=== PATIENT | female | born 1960 | race Caucasian/White ===

== ENCOUNTER → 2021-02-01 10:42 | Outpatient (BNVA) | payer BC, SELFPAY | PROVIDERS: Family Provider Family Medicine; Visit Provider Nurse Practitioner Family | DX: M25.531 Pain in right wrist (principal) | CPT/HCPCS: 73110 ==

== ENCOUNTER 2022-07-20 15:07 | Outpatient (CLI) | payer OTHER, SELFPAY ==
--- NOTE | 2022-07-20 15:20 | MM_ITS ---
WS: [id number] BILATERAL 3D TOMOSYNTHESIS DIGITAL SCREENING MAMMOGRAM WITH CAD CLINICAL INFORMATION: SCREEN HISTORY: Screening mammogram. No current complaints. COMPARISON: None. TECHNIQUE: Bilateral CC and MLO views. FINDINGS: Fatty-replaced breasts bilaterally. No suspicious focal mass, asymmetry, calcifications, or cyber security architect ural distortion. No evidence of malignancy. Punctate and lucent centered calcification. A few intrama mmary lymph nodes. MM/[place] [id number] IMPRESSION: BI-RADS: 2-Benign FOLLOW UP: 1 Year Follow-up Recommend return to annual screening mammography.
== END 2022-07-20 15:08 | disposition home or self-care (01) ==
LOC: RAD 15:10
PROVIDERS: Family Provider Family Medicine; Visit Provider Nurse Practitioner Family
DX: Z12.31 Encounter for screening mammogram for malignant neoplasm of breast (principal)
CPT/HCPCS: 77063; 77067

== ENCOUNTER 2023-08-11 14:18 | Outpatient (CLI) | payer OTHER, SELFPAY ==
--- NOTE | 2023-08-11 14:23 | XR_ITS ---
WS: [id number] Right knee, 3 views, 08/11/2023 Clinical Data: R KNEE JOINT PAIN X 3 MONTHS Comparison: None. Findings: No fractures or dislocations are seen. There is medial and to a lesser degree lateral joint space aleks rowing. There are spurs of the medial and lateral tibial plateau and lateral femoral condyle. The pos terior right patella shows irregularity. There are synovial calcifications superior to the patellofem oral articulation. The soft tissues are unremarkable. XR/XR knee RT 3V* [id number] Impression: Moderate osteoarthritis of the right knee Negative right knee. Kellgren-Kvng Classification: grade 3 (moderate): moderate multiple osteoph ytes, definite narrowing of joint space and some sclerosis and possible deformi ty of bone ends
--- NOTE | 2023-08-11 14:40 | XR_ITS ---
WS: [id number] Left knee, 3 views, 08/11/2023 Clinical Data: LEFT KNEE PAIN X 3MO; NO KNOWN INJURY Comparison: None. Findings: No fractures or dislocations are seen. There is medial joint compartment narrowing with spurring of t he medial tibial plateau and medial femoral condyle. The posterior left patella shows minimal spurs. The soft tissues are unremarkable. XR/XR knee LT 3V* [id number] Impression: Mild osteoarthritis of the left knee. Kellgren-Kvng Classification: grade 2 (minimal): definite osteophytes and p ossible joint space narrowing
== END 2023-08-11 14:19 | disposition home or self-care (01) ==
LOC: RAD 14:19
PROVIDERS: Family Provider Family Medicine; Visit Provider Nurse Practitioner Family
DX: M25.561 Pain in right knee (principal); M25.562 Pain in left knee; M17.0 Bilateral primary osteoarthritis of knee
CPT/HCPCS: 73562

== ENCOUNTER → 2023-11-09 14:15 | Outpatient (BNVA) | payer OTHER, SELFPAY | PROVIDERS: Family Provider Family Medicine; PCP Nurse Practitioner Family; Referring Provider Nurse Practitioner Family; Visit Provider Physician Assistant | DX: M25.561 Pain in right knee (principal); M25.562 Pain in left knee; M17.11 Unilateral primary osteoarthritis, right knee | CPT/HCPCS: 73560; 73565 ==

== ENCOUNTER 2024-04-02 15:24 | Outpatient (CLI) | payer OTHER, SELFPAY ==
--- NOTE | 2024-04-02 15:45 | CT_ITS ---
WS: [id number] CT RIGHT KNEE, NONCONTRAST TECHNIQUE: Noncontrast CT of the RIGHT knee to include the RIGHT hip and ankle. CLINICAL INFORMATION: DJD KNEE COMPARISON: None. DLP: 942.[address] scans at [facility] use at least one of these dose optimization techniques: automated e xposure control; mA and/or kV adjustment per patient size (includes targeted exams where dose is matc hed to clinical indication); or iterative reconstruction. FINDINGS: CT/CT knee RT [facility] [id number] IMPRESSION: Images obtained for preoperative purposes.
== END 2024-04-02 15:25 | disposition home or self-care (01) ==
PROVIDERS: Family Provider Family Medicine; PCP Nurse Practitioner Family; Visit Provider Student in an Organized Health Care Education/Training Program
DX: M17.11 Unilateral primary osteoarthritis, right knee (principal); K57.30 Diverticulosis of large intestine without perforation or abscess without bleeding; M47.898 Other spondylosis, sacral and sacrococcygeal region; R93.89 Abnormal findings on diagnostic imaging of other specified body structures; D36.7 Benign neoplasm of other specified sites
CPT/HCPCS: 73700

== ENCOUNTER → 2024-04-04 15:28 | Outpatient (BNVA) | payer OTHER, SELFPAY | PROVIDERS: Family Provider Family Medicine; PCP Nurse Practitioner Family; Visit Provider Physician Assistant | DX: Z01.818 Encounter for other preprocedural examination (principal); M25.569 Pain in unspecified knee; R03.0 Elevated blood-pressure reading, without diagnosis of hypertension; M17.11 Unilateral primary osteoarthritis, right knee | CPT/HCPCS: 36415; 80053; 81001; 85025 ==

== ENCOUNTER → 2024-04-08 11:40 | Outpatient (BNVA) | payer OTHER, SELFPAY | PROVIDERS: Family Provider Family Medicine; PCP Nurse Practitioner Family; Visit Provider Family Medicine | DX: Z01.818 Encounter for other preprocedural examination (principal) | CPT/HCPCS: 93005 ==

== ENCOUNTER 2024-04-15 05:54 | Day surgery (SDC) | payer OTHER, SELFPAY ==
[2024-04-15] VITALS (18 sets, daily range): BP systolic 96–123; BP diastolic 47–104; PULSE 55–79; RESP 10–20; TEMP 36.3–37.3; O2SAT 96–100; BMI 40.5
--- NOTE | 2024-04-15 06:13 | ANES.PREANE2 ---
Pre-Anesthetic Assessment Height/Weight: Height 5 ft 6.5 in Weight 255 lb Temp Pulse Resp BP Pulse Ox O2 Del Method 97.4 F L 79 20 H 123/104 96 Room Air 04/15/24 06:05 04/15/24 06:05 04/15/24 06:05 04/15/24 06:05 04/15/24 06:05 04/15/24 06:11 Preop Diagnosis: knee DJD Operation Date: 04/15/24 07:00 Proposed Procedures p Gopi Robot Total Knee Arthroplasty(Right) - Raymond Paredes, DO Was Beta Darren taken within 24 hours: N/A Was Clonidine taken within 24 hours: N/A Last intake: Intake Last Liquid Date 04/14/24 Last Liquid Time 23:00 Last Solid Date 04/14/24 Last Solid Time 19:00 Social No alcohol and No tobacco Exam alert, oriented x 3, clear to auscultation bilaterally and regular rate & rhythm Airway Submandibular: within normal limits Cervical ROM: within normal limits Mallampati: Class III Dentition: full Anesthetic Plan ASA status: 3 Anesthesia: MAC and Regional (specify below) Other: No prior issues with anesthesia NPO since yesterday BMI 40 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 S/p craniotomy 12 years ago Labs performed 04/04/2024 reviewed and acceptable hold for procedure EKG showing sinus rhythm with mild conduction delay Plan for spinal anesthetic with adductor canal block Medications/Allergies Home Medications Medication Instructions Recorded Confirmed Last Taken Type levetiracetam 750 mg tablet 750 mg PO BID 11/09/23 04/11/24 04/15/24 04:00 History (Keppra) sertraline 25 mg tablet (Zoloft) 25 mg PO DAILY 11/09/23 04/11/24 04/14/24 12:00 History Allergies Allergy/AdvReac Type Severity Reaction Status Date / Time No Known Allergies Allergy Verified 04/08/24 11:55 [facility] Anesthesia Social History Smoking and tobacco/nicotine status: never used tobacco/nicotine Data Anesthesia 04/15/24 06:34 04/15/24 06:34 Cardiac Studies: No Data to Display
[2024-04-15] MEDS: scopolamine 1 mg PATCH 1 PATCH TRANSDERMA (06:17)
[2024-04-15] MEDS: sodium chloride 0.9% 1,000 ML 30 ML IV (06:35)
[2024-04-15] MEDS: ketorolac 30 mg/mL INJ IVP (06:38)
[2024-04-15] MEDS: acetaminophen 1,000 MG/100 ML PIGGYBACK 400 MG IV ×2 (06:38→14:38)
[2024-04-15 06:52] LABS: Basophils % 0.4 %; Eosinophils # 0.1 10^3/uL (0.0-0.8); Eosinophils % 1.8 %; Lymphocytes # 1.1 10^3/uL (0.8-4.8); Lymphocytes % 15.1 %; Mean Corpuscular HGB Conc 31.6 g/dL (30-55); Mean Corpuscular Hemoglobin 25.5 pg (27-33); Mean Corpuscular Volume 80.7 fl (85-98); Mean Platelet Volume 11.6 fL (7.4-10.4); Monocytes # 0.5 10^3/uL (0.2-0.9); Neutrophils # 5.47 10^3/uL (1.8-7.7); Neutrophils % 75.6 %; Nucleated Red Blood Cells % 0 %; Platelet Count 179 10^3/cmm (157-399); Red Blood Count 4.71 10^6/uL (3.85-5.65); White Blood Count 7.24 10^3/uL (3.29-11.43)
--- NOTE | 2024-04-15 07:01 | W.PM.OPSUD ---
Surgery/Procedure H&P Update DATE OF PROCEDURE: April 15, 2024 DATE H&P PERFORMED: 04/04/24 H&P UPDATE INFORMATION: I have reviewed H&P completed within last 30 days, I have examined patient prior to procedure and No changes to prior documentation PREOP DIAGNOSIS: Right knee DJD PRIMARY INDICATION FOR PROCEDURE: Right knee DJD PLANNED PROCEDURE: Operation Date: 04/15/24 07:00 Proposed Procedures p Gopi Robot Total Knee Arthroplasty(Right) - Raymond Paredes DO
[2024-04-15 07:05] LABS: Blood Urea Nitrogen 17 mg/dL (8-23); Carbon Dioxide 20 mmol/L (22-29); Chloride 106 mmol/L (98-107); Creatinine Clr Calc Pharmacy 79.4466; Glomerular Filtration Rate 62.6 mL/min (90-130); Glucose 109 mg/dL (65-115); Osmolality Calculated 292 mOsm/kg (285-295); Sodium 140 mmol/L (136-145)
[2024-04-15] MEDS: ceFAZolin 3,000 MG in sodium chloride 0.9% (plus) 100 ML 200 MG IV (07:06)
[2024-04-15 07:08] LABS: Anion Gap 17.8 (5-19); Potassium 3.8 mmol/L (3.5-5.1)
--- NOTE | 2024-04-15 07:35 | ANES.PROC ---
Anesthesia Procedures Procedure/Date: 04/15/24 Nerve Block ^: Nerve Block 1: Main Anesthesia: spinal anesthesia block Time Out Performed: Yes Consent: requested by attending/covering physician and from patient Nerve block location: adductor canal Anesthesia monitors applied: pulse oximetry, EKG, BP cuff and oxygen Nerve block position: supine Anesthetic Used: ropivicaine 0.5% Amount of anesthesia used (mL): 15 Ultrasound used to: recognize landmarks Nerve Stimulator Used?: No Interscalene/Femoral BLK: other needle (pjunk 6inch) Injection: neg aspiration of heme Patient Tolerated Procedure: well Complications: none
[2024-04-15] MEDS: tranexamic acid 1,000 mg/10mL SDV 1000 MG IV (07:53)
[2024-04-15] MEDS: ROPivacaine 0.2% Premix 100 mL 200 MG INTRA-ARTI (08:23)
[2024-04-15] MEDS: EPINEPHrine 1 mg/mL INJ XX (08:23)
[2024-04-15] MEDS: tranexamic acid 1,000 mg/10mL SDV 1000 MG XX (08:23)
[2024-04-15] MEDS: VANCOMYCIN ADD-Vantage 1,000 MG VIAL 1000 MG XX ×2 (08:23→09:08)
[2024-04-15] MEDS: ketorolac 30 mg/mL INJ XX (08:23)
--- NOTE | 2024-04-15 09:57 | XR_ITS ---
WS: [id number] XR knee RT 1-2V [id number] REASON FOR EXAM: post op FINDINGS: Total right knee arthroplasty. Prosthetic components are intact and in proper position and alignment. No focal bone abnormality. XR/XR knee RT 1-2V [id number] IMPRESSION: Total right knee arthroplasty without abnormality.
--- NOTE | 2024-04-15 10:02 | P.BOP_ITS ---
Date of Procedure: [April 15, 2024] Surgeon: [Dr. Paredes, DO Naveen Paredes, YANELI] Construction Job Titles(s): [] Procedure(s) performed: [Right total knee arthroplasty with Gopi robotic assist] Findings of the procedure(s): [Right knee degenerative joint disease, bone spurs and loose body removed. Procedure went well and as planned] Estimated blood loss: [25 mL] Specimen(s) removed: [N/A] Post-operative diagnosis: [Right knee degenerative joint disease]
--- NOTE | 2024-04-15 10:04 | PM.PACU ---
PACU note Narrative: Patient is a 64-year-old female just underwent a right total knee arthroplasty. Pt transferred to PACU in stable condition. Dressing is dry. pt is awake and alert. Distal pulses are palpable toes are warm and well-perfused. Cap refill is normal and under 2 seconds. Unable to further assess sensation or motor of leg due to residual spinal block. Pain is controlled. Exam: awake Disposition: admitted
--- NOTE | 2024-04-15 10:11 | PM.OP ---
Operative Report Date of procedure: April 15, 2024 Surgeon: Raymond Paredes DO School Speech Therapist: Naveen Paredes PA-C: PA was necessary for assistance in this case with leg positioning retraction and protection of neurovascular structures as well as assistance in implantation wound closure and dressing application. Procedure: Preoperative diagnosis: Right knee degenerative joint disease Post-op diagnosis: Same Procedure done: Right total knee arthroplasty, cemented?robotic assisted Gopi Implants: Mariann triathlon size 5 femur CR cemented?right Mariann triathlon size?4 tibia universal baseplate cemented Mariann triathlon symmetric patella size 31 mm Mariann triathlon polyethylene 9mm Surgeon: Raymond Paredes DO Estimated blood?loss: 25 mL Tourniquet 71min IV fluids: 2000 mL Urine output: 300 mL Complications: None Condition: stable Disposition: floor Brief History: Patient is a 64-year-old female with with chronic?right knee degenerative joint disease.? Patient has been worked up in the outpatient setting in the orthopedic office at this point time through shared decision making given? [id number] arthritis as well as failed conservative treatment, and pt would?like to proceed with a?right total knee arthroplasty.? Through shared decision making elected to proceed with surgical intervention for?right total knee arthroplasty with Gopi robotic assisted. We talked about continued conservative treatment and surgical intervention as far as the risk benefits complications alternatives surgical and nonsurgical treatment options.? At this point time understanding patient risks with surgery patient agrees to proceed with surgical intervention.? Once again? risk with surgery include but are not?limited to make it better make it worse blood clot, heart attack, stroke, on the table, infection, injury to nerves or vessels, persistent pain, arthrofibrosis, implant failure.? Understanding these risks patient agrees to proceed with surgical intervention consent was obtained.? All questions answered. Procedure: Patient was seen and evaluated in the preoperative holding area.? Consent was reviewed and signed with patient with plan for?right total knee arthroplasty.? All questions answered.? Correct extremity marked.? Patient seen and evaluated by the anesthesia department and once cleared for surgery was taken back to the operative suite.? Patient was placed into a supine position on the OR table.? All bony prominences were well-padded.? Patient was appropriately secured to the bed.? Patient underwent anesthesia per the anesthesia department.? Patient received spinal anesthesia and? Bacon catheter was placed.? A nonsterile tourniquet was applied to the?right thigh.? At this point in time a final timeout performed.? Patient received appropriate preoperative antibiotics and TXA. Next the?right?lower extremity was then prepped and draped in standard orthopedic fashion. Esmarch tourniquet was used exsanguinate the?right?lower extremity.? Tourniquet was insufflated to 300 mmHg. A standard anterior incision was made over midline of the knee.? Sharp scalpel excision through skin and subcutaneous tissue full-thickness skin flaps were made.? Fascia was elevated off of the extensor retinaculum was stable with medial parapatellar arthrotomy was then made.? The performed standard sequential releases..? Immediately on entry into the joint patient was found to have severe eburnated bone and tricompartmental arthritic changes noted.? With significant osteophyte formation.? Next the the patella was then stuffed and the knee was then flexed.?? Terrie was placed superiorly around the anterior aspect of the femur this was freed of synovium and I subsequently then placed by 2 femur pins to establish my femur arrays for the Goip robot.? These were then placed bicortically and? femur array was then appropriately secured with appropriate visualization.? Next attention was turned towards the tibial rays.? These were then drilled sequentially bicortically in parallel fashion and intraincisional.? I then placed my guide as well as my tibial array on in place.? This was appropriately secured and had excellent visualization with the Gopi robot.? Next the tibial checkpoint as well as femur checkpoint were then placed.? At this point time I then subsequently established my head center as well as my medial?lateral malleoli as well as my checkpoints.? Next utilizing standard Gopi technology I then mapped out the appropriate points and confirmation points around the femur as well as the tibia in standard fashion.? Once this was then done I then removed all osteophytes in preparation for dynamic testing.? All osteophytes were removed as well as I removed the ACL and the PCL was excised due to its significant tearing and degeneration noted.? At this point time the knee was brought into full extension and we performed our standard evaluation of our gap balancing stressing his?ligaments and extension as well as flexion appropriate adjustments were made to have appropriate gap balancing in both flexion and extension.? This plan for final cuts. Patient had significant varus deformity was corrected in the combination with patient's ligament balancing process to what patient's ligaments would tolerate..? We get a preoperative plan evaluating our implants which was a size 5 femur and a size 4 tibia.? Next we brought in the Gopi robot and sequentially made our femur cuts.? All excess bony cuts were then removed.? Finally we made our tibial cut.? Once this was done a standard PCL retractor was then placed into this position I excised the medial and?lateral meniscus.? The tibial cut was then subsequently removed all excess bony debris was removed.? I then utilized a?lamina access lead and remove the posterior osteophytes.? At this point time sized the tibia and confirmed this was a size 4.? I utilized our blunt probe to establish rotation of tibial implant.? Once this was done I then placed my tibia size 4 trial in appropriate position and then subsequently placed tibial pins to hold this into place placed, and trial of a size 9 mm poly as well as a size 5 femur which was appropriately impacted in place knee was then subsequently brought into extension. Trials were then assessed,? this was stable with varus valgus stress in extension as well as had symmetrical translation when brought into flexion demonstrating symmetrical gaps. I had excellent balance gaps in flexion and extension with varus and valgus stresses.? At this point I was satisfied with these implants these were then verified and opened on the back table size 4 tibia, size 5 femur,? size 9 mm polythickness.? We did confirm appropriate gap balancing and stresses as well as alignment utilizing? Gopi and were satisfied with this plan.? ?At this point time with my trials in place I then towel clip the patella everted this made appropriate measurements subsequently utilizing freehand technique performed by patellar resurfacing this was confirmed to be appropriate resection and subsequently sized to be a 31 mm symmetric.? My drill peg guides were then clamped and appropriate position and appropriate position in the patella for appropriate tracking and parallel with the joint.? Pegs were drilled trial implant was placed and the knee was then subsequently ranged and found to have excellent patellar tracking.? Femur pegs were then drilled.? All checkpoints as well as guidepins and arrays were removed and appropriate counts made.? Satisfied with our tibial placement rotation I then utilized the keel punch and prepped the tibia.? At this point time all of our trial implants were removed.? The wound bed? was thoroughly irrigated and dried and prepped for cementation.? Cement was mixed on the back table.? Once cement was ready this was then covered onto the tibia and the tibial baseplate was then impacted and all excess cement was removed.? Next the polyethylene was then impacted into place on the tibial baseplate.? Next cement was placed onto the femur as well as under the femur implants and impacted in to place and all excess cement was extruded and removed.? Knee was taken into full extension? to clear all excess cement was removed.? Warm saline was placed over the joint.? I then towel clip patella and dried for cementation. cemented the patella into place.? This was all clamped and the cement was allowed to cure.? Thorough irrigation performed with pulse?lavage.? I then placed my periarticular injection while the cement was curing.? Once cured the knee was taken through range of motion and had excellent stability and gaps were balanced in flexion and extension.? Tourniquet was then deflated. hemostasis satisfactory with electrocautery.? 2 g vancomycin powder was placed in the wound bed for antibiotic infection prophylaxis. Next I then subsequently closed the capsule with Ethibond suture as well as a running strata fix suture.? Knee was then taken through range of motion 30 times.? Next the skin was then closed in?layered fashion of running stratifix sutures of deep and subcutenous tissue and skin.? ?closed in flexion and leandro was then placed over the incision.? Incision was covered with [place] incisional VAC dressing, with ABDs soft roll and Tal wrap.? Patient was then awakened from anesthesia and taken to PACU in stable condition. Disposition: Patient taken to PACU in stable condition will be admitted to the floor for pain control PT/OT weight-bear as tolerated?right?lower extremity dressing changes as needed, DVT prophylaxis. Pain control. Patient will receive appropriate postoperative antibiotics. patient will be seen today by the internal medicine team for medical management.? Patient will follow up with the office in 2 weeks.? Patient understands agrees with current plan.? All questions answered.
--- NOTE | 2024-04-15 10:23 | ANE.PACU2 ---
Inpatient post-anesthesia follow up: Airway intact: Yes Vital signs: Temperature 97.4 F Pulse Rate 66 Respiratory Rate 12 Blood Pressure 110/68 Pulse Oximetry 100 Oxygen Delivery Me thod Room Air Oxygen Flow Rate Fraction of Inspir ed Oxygen Hydration adequate: Yes Nausea and vomiting: No Pain level: 2 Mental status: Baseline
[2024-04-15] MEDS: lactated ringers 1,000 ML 75 ML IV (10:30)
--- NOTE | 2024-04-15 11:01 | P.CONIM_ITS ---
Providers/Reason For Consult 2 Consulting Physician/Specialty*: Hospitalist Reason for Consult*: Medical Management Attending Physician: Raymond Paredes DO Primary Care Provider: Lurdes Veronica History of Present Illness History of Present Illness Pleasant 64-year-old lady with history of SID on nightly CPAP, controlled epilepsy, without any recent seizures, with history of morbid obesity, but with weight loss, hypothyroidism in remission after weight loss, no longer taking levothyroxine, on sertraline she reports as a strategy to help mitigate chronic pain, has been on 25 mg for a long time, recently increased to 50 mg. She underwent right TKA today and an uncomplicated procedure. Minimal blood loss. She is planning with orthopedic surgery for return home later today with Eliquis for VTE prophylaxis and follow-up labs. Review of Systems 2 Const: Denies: fever(s) or chills Card: Denies: chest pain or edema Resp: Denies: dyspnea GI: Denies: abdominal pain, nausea, vomiting, diarrhea or hematochezia : Denies: hematuria Musc: Denies: joint swelling Skin/Breast: Denies: rash or new lesions Neuro: Denies: headache(s) or confusion Medications/Allergies Home Medications Medication Instructions Recorded Confirmed Last Taken Type levetiracetam 750 mg tablet 750 mg PO BID 11/09/23 04/11/24 04/15/24 04:00 History (Kelauren) sertraline 25 mg tablet (Zoloft) 25 mg PO DAILY 11/09/23 04/11/24 04/14/24 12:00 History Allergies Allergy/AdvReac Type Severity Reaction Status Date / Time No Known Allergies Allergy Verified 04/08/24 11:55 PFSH Acute 2 PFSH: Medical History Hypothyroidism In remission with weight loss. Obesity Epilepsy SID (obstructive sleep apnea) Social History Smoking and tobacco/nicotine status: never used tobacco/nicotine Vitals/I&O/Wt Last Vital Signs Temp 97.4 F L 04/15/24 10:21 Pulse 66 04/15/24 10:21 Resp 12 04/15/24 10:21 BP 110/68 04/15/24 10:21 Pulse Ox 100 04/15/24 10:21 O2 Del Method Room Air 04/15/24 10:21 04/14/24 04/15/24 04/15/24 22:59 06:59 14:59 Intake Total 100 / 100 1150 / 1150 Output Total 325 / 325 Balance 100 / 100 825 / 825 Weight last 48 hrs Weight 115.666 kg Physical Exam 2 Narrative: Accompanied by her . Const: COMMON NORMALS: patient oriented x3 and alert GENERAL APPEARANCE: c ooperative ORIENTATION/CONSCIOUSNESS: Yes awake HENMT: COMMON NORMALS: oropharynx normal Neck/C-Spine: COMMON NORMALS: no JVD Resp: COMMON NORMALS: normal respiratory effort and clear to auscultation bilaterally AUSCULTATION: clear to auscultation bilaterally Cardio: COMMON NORMALS: no JVD, regular rhythm, S1 normal heart sound present, S2 normal heart sound present and No murmurs present (Cardio) RHYTHM: regular rhythm HEART SOUNDS: S1 normal heart sound present and S2 normal heart sound present GI: COMMON NORMALS: Normal to inspection, nondistended, normoactive bowel sounds present, Soft to palpation and non-tender PALPATION: Yes Soft to palpation Extremity: COMMON NORMALS: no joint enlargement and no pedal edema OTHER: RLE and compressive dressing after surgery. Neuro: COMMON NORMALS: patient oriented x3 and moves all extremities S ENSORIUM/ORIENTATION: Yes alert Skin: COMMON NORMALS: no rashes or lesions noted GENERAL SKIN EXAM: no rashes or lesions noted Data 04/15/24 06:34 04/15/24 06:34 A&P Assessment and plan (1) S/P total knee arthroplasty: Status post right TKA, uneventful surgery, reported minimal EBL. He is doing well postoperatively. Reviewed vitals, CBC, BMP, knee x-ray, surgical note. Discussed with orthopedic surgery. Pending therapy evaluation. Toradol, oxycodone as needed for pain. Would stop tramadol with increased risk of bleeding in combination with SSRI, anticoagulant. Hydromorphone IV as needed for severe breakthrough pain. Will be on Eliquis for VTE prophylaxis. She states they have planned with orthopedics regarding return home later today. Revisited with her risk of anemia, she will be going home with follow-up and labs. She knows to seek medical attention in case of any nonresolving or concerning bleeding. She would like to lower her sertraline dose temporarily to 25 mg daily while on anticoagulant. She otherwise states she knows to seek medical attention immediately in case of any new concerning symptoms. Discussed with her and encouraged incentive spirometry use. Her chronic medical issues would not be a barrier to returning home today. Plan Epilepsy: Has been under good control. Resume Keppra. SID: Continue nightly CPAP. Discussed with her she could use her own CPAP or CPAP is available here in case she did require staying overnight. Sertraline: She states has been used as an adjunctive therapy for chronic pain. She has been on 25 mg for a long time, recently increased to 50 mg. Discussed some risk of bleeding with SSRI, consideration of options of continuation, reduction dose, discontinuation. For now she would prefer to lower the dose to 25 mg temporarily. Consult Attestations 2 Medical Necessity Statement: Being observed after right TKA and High MDM includes amount and/or complexity of data reviewed/ordered [ previous or external records, resulted lab(s)/test(s) and other healthcare professional discussion] and described risk of complication, morbidity or mortality of management as documented Diagnoses S/P total knee arthroplasty Z96.659
[2024-04-15] MEDS: tranexamic acid 1,000 MG/100 ML PREMIX 600 MG IV (13:57)
[2024-04-15] MEDS: chlorhexidine gluconate 0.12% Btl 473 mL 30 ML MUCOUS MEM (13:58)
[2024-04-15] MEDS: ketorolac 30 mg/mL INJ 15 MG IVP (14:12)
--- NOTE | 2024-04-15 15:13 | PM.DCS ---
Discharge Providers Date of Admission: 04/15/24 10:16 Date of Discharge: April 15, 2024 Attending Provider at Admission: Raymond Paredes DO Attending Provider at Discharge: Raymond Paredes DO Consults: Dr. Ribeiro?hospitalist Primary Care Provider: Lurdes Veronica ENVIRONMENTAL SERVICES COORDINATOR Diagnoses at Discharge Discharge Diagnosis (1) S/P total knee arthroplasty: Status: Acute Reason for Visit Reason for Visit: M17.11 Brief History: Status post right TKA Hospital Course Hospital Course Patient presented to the preoperative holding area with plan for right total knee arthroplasty after patient has been worked up in the outpatient setting for failed conservative treatment of right knee degenerative joint disease. Once cleared by anesthesia for surgery patient subsequently was taken back to the operative suite underwent anesthesia per anesthesia department and then subsequently underwent a right total knee arthroplasty. Procedure was performed without any complications patient was taken to PACU in stable condition patient recovered well in PACU and then was admitted to the floor postoperatively internal medicine was consulted and on board for medical management and assistance with care. Patient received appropriate PT/OT, postoperative antibiotics, postoperative TXA, pain control, postoperative DVT prophylaxis. Elevation and ice. Patient encouraged for knee range of motion allowed weightbearing as tolerated to the operative lower extremity. Dressing was changed as needed, labs were monitored daily. Patient recovered well postoperatively and worked well and progressed well with therapy. Patient progressed well postoperatively on postoperative day 0 was cleared by internal medicine at this point in time felt more comfortable going home, patient understands potential risks and things to look out for as far as returning back to the hospital. Understanding this she elects to proceed with discharging today.. It was determined on postoperative day 0 the patient was stable for discharge from an orthopedic standpoint and medicine. Patient was comfortable with discharge and plan was discharged home. Patient received appropriate discharge instructions as well as pain medication and DVT prophylaxis postoperatively. Given appropriate instructions for dressing management. Patient will follow-up with Dr. Paredes/orthopedics in the office in 2 weeks. All questions answered. Understand if there is any issues questions or concerns and contact the office. Physical Exam Narrative: Right knee examination: Dressing on in place, clean dry and intact. No evidence of saturation. Patient has normal postoperative swelling and tenderness to palpation to the knee. Compartments are soft compressible,'s calf soft and nontender. Sensations intact to light touch distally. Distal pulses are palpable. Patient is able to wiggle toes as well as plantarflex and dorsiflex ankle. Discharge Data Studies Completed and Pending Completed Studies During Hospitalization Category Date Time Status XR knee RT 1-2V 81607 Routine Exams 04/15/24 09:57 Completed Pending at discharge Category Date Time Status Basic Metabolic Panel AM LABS Lab 04/16/24 04:00 Ordered Basic Metabolic Panel AM LABS Lab 04/17/24 04:00 Ordered Basic Metabolic Panel AM LABS Lab 04/18/24 04:00 Ordered Complete Blood Count w/Auto AM LABS Lab 04/16/24 04:00 Ordered Complete Blood Count w/Auto AM LABS Lab 04/17/24 04:00 Ordered Complete Blood Count w/Auto AM LABS Lab 04/18/24 04:00 Ordered Radiology Impressions Knee X-Ray 04/15/24 09:57 IMPRESSION: Total right knee arthroplasty without abnormality. Laboratory Results WBC 7.24 10^3/uL (3.29-11.43) 04/15/24 06:34 RBC 4.71 10^6/uL (3.85-5.65) 04/15/24 06:34 Hgb 12.00 g/dL (11.27-16.99) 04/15/24 06:34 Hct 38.0 % (36-47) 04/15/24 06:34 MCV 80.7 fl (85-98) L 04/15/24 06:34 MCH 25.5 pg (27-33) L 04/15/24 06:34 MCHC 31.6 g/dL (30-55) 04/15/24 06:34 RDW 15.0 % (12.1-15.1) 04/15/24 06:34 Plt Count 179 10^3/cmm (157-399) 04/15/24 06:34 MPV 11.6 fL (7.4-10.4) H 04/15/24 06:34 Neut % (Auto) 75.6 % 04/15/24 06:34 Lymph % (Auto) 15.1 % 04/15/24 06:34 Mclennan % (Auto) 7.0 % 04/15/24 06:34 Eos % (Auto) 1.8 % 04/15/24 06:34 Baso % (Auto) 0.4 % 04/15/24 06:34 Neut # (Auto) 5.47 10^3/uL (1.8-7.7) 04/15/24 06:34 Lymph # (Auto) 1.1 10^3/uL (0.8-4.8) 04/15/24 06:34 Mclennan # (Auto) 0.5 10^3/uL (0.2-0.9) 04/15/24 06:34 Eos # (Auto) 0.1 10^3/uL (0.0-0.8) 04/15/24 06:34 Baso # (Auto) 0.0 10^3/uL (0.0-0.1) 04/15/24 06:34 Nucleated RBC % (auto) 0 % 04/15/24 06:34 Nucleated RBCs # 0.0 /100WBC 04/15/24 06:34 Sodium 140 mmol/L (136-145) 04/15/24 06:34 Potassium 3.8 mmol/L (3.5-5.1) 04/15/24 06:34 Chloride 106 mmol/L (98-107) 04/15/24 06:34 Carbon Dioxide 20 mmol/L (22-29) L 04/15/24 06:34 Anion Gap 17.8 (5-19) 04/15/24 06:34 BUN 17 mg/dL (8-23) 04/15/24 06:34 Creatinine 0.9 mg/dL (0.5-0.9) 04/15/24 06:34 GFR Calculation 62.6 mL/min (90-130) L 04/15/24 06:34 Glucose 109 mg/dL (65-115) 04/15/24 06:34 Calculated Osmolality 292 mOsm/kg (285-295) 04/15/24 06:34 Calcium 9.0 mg/dL (8.5-10.5) 04/15/24 06:34 Blood Type O Positive 04/15/24 06:34 Rho(D) Type Rh positive 04/15/24 06:34 Antibody Screen Negative 04/15/24 06:34 Vitals Last Vital Signs Temp 97.4 F L 04/15/24 10:21 Pulse 66 04/15/24 10:21 Resp 12 04/15/24 10:21 BP 110/68 04/15/24 10:21 Pulse Ox 100 04/15/24 10:21 O2 Del Method Room Air 04/15/24 10:21 Discharge Plan Discharge Patient Disposition: Home Health Service Condition: Stable Prescriptions: New ondansetron 4 mg tablet,disintegrating 4 mg PO Q8H PRN (Reason: nausea and vomiting) 3 Days Qty: 9 0RF Eliquis 2.5 mg tablet 2.5 mg PO BID 14 Days Qty: 28 0RF methocarbamol 500 mg tablet 500 mg PO TID PRN (Reason: muscle spasms/pain) 14 Days Qty: 42 0RF oxycodone 5 mg tablet 5 mg PO Q6H PRN (Reason: pain postop) 7 Days Qty: 28 0RF Continued levetiracetam [Keppra] 750 mg tablet 750 mg PO BID sertraline [Zoloft] 25 mg tablet 25 mg PO DAILY Discharge Orders: Discharge Order (Routine); Ordered 04/15/24 Ordered By: Raymond Paredes Other Ambulatory Orders: Physical Therapy Eval and Treat Outpatient (Order) Timeframe: 3 Days Facility: [facility] - Location: Physical Therapy [place] Ordered By: Raymond Paredes Complete Blood Count w/Auto (Routine) Timeframe: 2 Days Location: Determined by Patient Ordered By: Steve Ribeiro Referrals: Raymond Paredes DO [Physician] - Lurdes Veronica FNP [Primary Care Provider] - 4-7 days Discharge Diet: Regular Discharge Activity: Limit activity as instructed and Use walker/crutches as instructed Patient Instructions: Apixaban (By mouth), Acute Wound Care (DC), Total Knee Replacement (GEN), Opioid Safety, Post Anesthesia Care Activity Restrictions/Additional Instructions: Ortho DC Instructions: Removed adriana wrap to kiah bandage by . Keep incisions clean dry and intact, leave Kiah bandage dressings on in place for 14 days until followup visit. Remove battery pack after 7days and discard Patient may weight-bear as tolerate to the operative extremity Utilize walker as needed Encourage knee range of motion Ice and elevate as needed for pain and swelling Take pain medication as prescribed Take antinausea medication as needed Take muscle relaxer as needed for muscle spasms/pain Pain medication can cause constipation. take [id number] stool softeners and or MiraLAX. Take prescribed Eliquis twice daily for the next 14 days for blood clot prevention May supplement for pain with tylenol [id number] as needed No baths or soaks Follow-up in the orthopedic office in 2 weeks Contact the office for any questions or concerns Followup with PCP in 48hrs for lab check and postop followup Seek medical attention in case of any new concerning symptoms. Discharge Attestations Time Spent in Discharge Care*: less than 30 min Quality Metrics Clinical Quality Measures [ No reported AMI, CVA or VTE this stay] Coding Level of Care Code Acute Code for Gildardog Fwd Diagnoses S/P total knee arthroplasty Z96.659
--- NOTE | 2024-04-15 16:02 | PC.OT ---
OT EVALUATION ORDERS RECEIVED. OT SCREEN COMPLETED AND PATIENT DEMONSTRATES NO ADL DEFICITS AT THIS TIME. PATIENT IN PROCESS OF D/C NO SKILLED OT REQUIRED
[2024-04-15] MEDS: ceFAZolin 3,000 MG in sodium chloride 0.9% (plus) 50 ML 100 MG IV (16:39)
[2024-04-15] MEDS: oxyCODONE 5 mg IR Tab/Cap PO (16:46)
== END 2024-04-15 17:20 | disposition home health service (06) ==
LOC: OR 07:27 → OBGYN 10:23
PROVIDERS: Physician Assistant; PCP Nurse Practitioner Family; Visit Provider Student in an Organized Health Care Education/Training Program
PROC: 8E0Y0CZ Robotic Assisted Procedure of Lower Extremity, Open Approach (ICD-10-PCS; CPT 27447; principal; 2024-04-15 07:00)
DX: M17.11 Unilateral primary osteoarthritis, right knee (principal); R56.9 Unspecified convulsions
CPT/HCPCS: 20985; 27447; 36415; 73560; 80048; 85025; 86850; 86900; 97116; 97161; C1776; G0378; J0131; J0171; J0690; J1885; J2250; J2704; J2795; J3370; J7030; J7120

== ENCOUNTER → 2024-04-30 14:16 | Outpatient (BNVA) | payer OTHER, SELFPAY | PROVIDERS: PCP Nurse Practitioner Family; Visit Provider Physician Assistant | DX: M17.11 Unilateral primary osteoarthritis, right knee; Z96.651 Presence of right artificial knee joint | CPT/HCPCS: 73560; 73565 ==

== ENCOUNTER → 2024-06-18 13:31 | Outpatient (BNVA) | payer OTHER, SELFPAY | PROVIDERS: PCP Nurse Practitioner Family; Visit Provider Physician Assistant | DX: Z47.1 Aftercare following joint replacement surgery (principal); Z96.651 Presence of right artificial knee joint | CPT/HCPCS: 73560; 73565 ==

== ENCOUNTER → 2024-10-01 14:00 | Outpatient (BNVA) | payer OTHER, SELFPAY | PROVIDERS: PCP Nurse Practitioner Family; Visit Provider Nurse Practitioner Family | DX: G40.909 Epilepsy, unspecified, not intractable, without status epilepticus (principal); E03.9 Hypothyroidism, unspecified | CPT/HCPCS: 80053; 80061; 80177; 82607; 83036; 84443; 85025 ==

== ENCOUNTER → 2024-11-13 08:50 | Outpatient (BNVA) | payer OTHER, SELFPAY | PROVIDERS: PCP Nurse Practitioner Family; Visit Provider Student in an Organized Health Care Education/Training Program | DX: M25.562 Pain in left knee (principal); M17.12 Unilateral primary osteoarthritis, left knee; Z96.651 Presence of right artificial knee joint; Z01.89 Encounter for other specified special examinations | CPT/HCPCS: 73560; 73565 ==

== ENCOUNTER → 2024-12-17 14:03 | Outpatient (BNVA) | payer OTHER, SELFPAY | PROVIDERS: PCP Nurse Practitioner Family; Visit Provider Nurse Practitioner Family | DX: G40.909 Epilepsy, unspecified, not intractable, without status epilepticus (principal) | CPT/HCPCS: 80053; 84439; 84443; 85025 ==

== ENCOUNTER 2025-01-23 05:54 | Day surgery (SDC) | payer OTHER, SELFPAY ==
[2025-01-23 06:01] VITALS: BMI 39.0
[2025-01-23 06:08] VITALS: BP 138/103; PULSE 109; RESP 18; TEMP 36.3; O2SAT 97
--- NOTE | 2025-01-23 06:10 | W.PM.OPSUD ---
Surgery/Procedure H&P Update DATE OF PROCEDURE: January 23, 2025 DATE H&P PERFORMED: 01/01/25 H&P UPDATE INFORMATION: I have reviewed H&P completed within last 30 days, I have examined patient prior to procedure, No changes to prior documentation, H&P is in [facility] EMR on date indicated and Risks and benefits of the procedure reviewed PLANNED PROCEDURE: Operation Date: 01/23/25 07:00 Proposed Procedures p Colonoscopy 42435 G0105 R19.5(Not Applicable) - Ishmael San MD
--- NOTE | 2025-01-23 06:40 | ANES.PREANE2 ---
Pre-Anesthetic Assessment Height/Weight: Height 1.68 m Weight 109.769 kg Temp Pulse Resp BP Pulse Ox O2 Del Method 97.3 F L 109 H 18 138/103 97 Room Air 01/23/25 06:08 01/23/25 06:08 01/23/25 06:08 01/23/25 06:08 01/23/25 06:08 01/23/25 06:08 Preop Diagnosis: Screening Operation Date: 01/23/25 07:00 Proposed Procedures p Colonoscopy 56019 G0105 R19.5(Not Applicable) - Ishmael San MD Familial anesthetic complications: none Was Beta Darren taken within 24 hours: N/A Was Clonidine taken within 24 hours: N/A Last intake: Intake Last Liquid Date 01/22/23 Last Liquid Time 23:00 Last Solid Date 01/21/25 Last Solid Time 15:00 Social No alcohol and No tobacco Exam alert, oriented x 3, clear to auscultation bilaterally and regular rate & rhythm Airway Cervical ROM: within normal limits Mallampati: Class II Dentition: full Pulmonary None reported CV/HEM None reported None reported Hepatic None reported GI None reported Metabolic Morbid Obesity and Thyroid Disease (hypo) Musc/skel None reported Neuropsych PTSD Anesthetic Plan ASA status: 3 Anesthesia: MAC Risk of > 500 ml blood loss (7ml/kg in children): No Medications/Allergies Home Medications ?Medication ?Instructions ?Recorded ?Confirmed ?Last Taken ?Type cyclobenzaprine 10 mg tablet 10 mg PO Q8H PRN muscle spasm #60 12/17/24 01/20/25 Unknown Rx tabs levetiracetam 750 mg tablet 750 mg PO TID #90 tabs 12/17/24 01/20/25 01/22/25 Rx (Keppra) levothyroxine 100 mcg tablet 100 mcg PO DAILY #90 tabs 12/17/24 01/20/25 01/22/25 Rx (Synthroid) tirzepatide (weight loss) 10 2.5 mg SUBCUT .weekly 01/20/25 01/20/25 01/13/25 History mg/0.5 mL subcutaneous solution Allergies Allergy/AdvReac Type Severity Reaction Status Date / Time No Known Allergies Allergy Verified 01/20/25 08:27 Current Medications Generic Name Dose Route Start Last Admin Trade Name Freq PRN Reason Stop Dose Admin Sodium Chloride 1,000 mls @ 15 mls/hr 01/23/25 05:58 01/23/25 06:27 Sodium Chloride 0.9% IV 01/24/25 05:57 15 mls/hr .Q24H PRN Administration COLONOSCOPY FLUIDS PFSH Anesthesia Medical History (Updated 01/01/25 @ 16:09 by Ishmael San MD) PTSD (post-traumatic stress disorder) Hypothyroidism Obesity Epilepsy SID (obstructive sleep apnea) Surgical History History of tonsillectomy History of cholecystectomy History of tubal ligation History of craniotomy calvarial hemangioma rupture Dr. Vizcaino 12/2011 S/P total knee arthroplasty right Social History Smoking and tobacco/nicotine status: never used tobacco/nicotine Substance/Drug Use: current Substance/Drug use frequency: other Other substance/drug use details: as needed for pain Household members: spouse Marital status: Current gender identity: Female Special felix needs: No
[2025-01-23 07:14] VITALS: BP 110/75; PULSE 71; RESP 16; TEMP 36.6; O2SAT 98
[2025-01-23 07:44] VITALS: BP 112/70; PULSE 68; RESP 16; O2SAT 98
== END 2025-01-23 07:54 | disposition home or self-care (01) ==
PROVIDERS: PCP Nurse Practitioner Family; Visit Provider Surgery
PROC: 0DJD8ZZ Inspection of Lower Intestinal Tract, Via Natural or Artificial Opening Endoscopic (ICD-10-PCS; CPT 45378; principal; 2025-01-23 07:00)
DX: Z12.11 Encounter for screening for malignant neoplasm of colon (principal); R19.5 Other fecal abnormalities; K57.30 Diverticulosis of large intestine without perforation or abscess without bleeding; D12.8 Benign neoplasm of rectum; E66.01 Morbid (severe) obesity due to excess calories; Z68.39 Body mass index [BMI] 39.0-39.9, adult; F43.10 Post-traumatic stress disorder, unspecified; E03.9 Hypothyroidism, unspecified; G47.33 Obstructive sleep apnea (adult) (pediatric)
CPT/HCPCS: 36416; 45380; 82962; 88305; J2704; J7030

== ENCOUNTER → 2025-02-04 13:13 | Outpatient (BNVA) | payer OTHER, SELFPAY | PROVIDERS: PCP Nurse Practitioner Family; Visit Provider Student in an Organized Health Care Education/Training Program | DX: M17.0 Bilateral primary osteoarthritis of knee (principal); Z09 Encounter for follow-up examination after completed treatment for conditions other than malignant neoplasm | CPT/HCPCS: 36415; 73560; 73565; 80053; 81001; 85025 ==

== ENCOUNTER 2025-02-12 16:13 | Outpatient (CLI) | payer OTHER, SELFPAY ==
--- NOTE | 2025-02-12 16:45 | CT_ITS ---
WS: [id number] CT LEFT knee, noncontrast HISTORY: LEFT TOTAL KNEE ARTHROPLASTY TECHNIQUE: Protocol for [facility] total knee replacement has been obtained. This includes axial imaging through the LEFT hip, LEFT knee and LEFT ankle. DLP: 980.91 mGy.cm COMPARISON: 02/04/2025 LEFT hip: Minimal joint space narrowing. No destructive bone lesions. Soft tissue calcifications towards the perineum. Arterial calcifications. LEFT knee: Moderate tricompartment joint space narrowing. No destructive bone lesions. No significant joint effusion. Mild lateral subluxation of the patella. LEFT ankle: Well-corticated osseous fragment at the medial malleolus from a prior injury. CT/CT knee LT [facility] [id number] IMPRESSION: CT imaging provided for [facility] robotic total knee replacement.
== END 2025-02-12 16:14 | disposition home or self-care (01) ==
LOC: RAD 16:14
PROVIDERS: PCP Nurse Practitioner Family; Visit Provider Student in an Organized Health Care Education/Training Program
DX: M17.12 Unilateral primary osteoarthritis, left knee (principal); I70.8 Atherosclerosis of other arteries; M89.772 Major osseous defect, left ankle and foot; S83.012A Lateral subluxation of left patella, initial encounter; X58.XXXA Exposure to other specified factors, initial encounter
CPT/HCPCS: 73700

== ENCOUNTER 2025-02-13 13:44 | Outpatient (CLI) | payer OTHER, SELFPAY ==
--- NOTE | 2025-02-13 13:58 | XR_ITS ---
WS: [id number] Exam: XR knee LT 3V* [id number] Date/Time of Exam: 02/13/2025 2:14 PM Reason For Exam: M17.12 - Unilateral primary osteoarthritis, left knee No fracture noted. Tricompartmental degenerative change. Marginal osteophytes along the medial and lateral joint compartments. Spurring of the posterior patella. No joint effusion. Bone spurring of the tibial spines. Normal soft tissues. XR/XR knee LT 3V* [id number] IMPRESSION: 1. Degenerative changes. No fracture. Kellgren-Kvng grade 3.
== END 2025-02-13 13:45 | disposition home or self-care (01) ==
LOC: RAD 13:44
PROVIDERS: PCP Nurse Practitioner Family; Visit Provider Student in an Organized Health Care Education/Training Program
DX: M17.12 Unilateral primary osteoarthritis, left knee (principal); M25.762 Osteophyte, left knee
CPT/HCPCS: 73562

== ENCOUNTER → 2025-02-21 08:23 | Outpatient (BNVA) | payer OTHER, SELFPAY | PROVIDERS: PCP Nurse Practitioner Family; Visit Provider Registered Nurse Neonatal Intensive Care | DX: Z01.818 Encounter for other preprocedural examination (principal); M17.12 Unilateral primary osteoarthritis, left knee; G47.33 Obstructive sleep apnea (adult) (pediatric); Z99.89 Dependence on other enabling machines and devices; D18.02 Hemangioma of intracranial structures; I69.198 Other sequelae of nontraumatic intracerebral hemorrhage; G40.802 Other epilepsy, not intractable, without status epilepticus; Z79.899 Other long term (current) drug therapy; Z96.698 Presence of other orthopedic joint implants; Z79.85 Long-term (current) use of injectable non-insulin antidiabetic drugs; E66.9 Obesity, unspecified; Z68.39 Body mass index [BMI] 39.0-39.9, adult | CPT/HCPCS: 81000 ==

== ENCOUNTER 2025-03-03 09:17 | Observation (INO) | payer OTHER, SELFPAY ==
[2025-03-03] VITALS (16 sets, daily range): BP systolic 91–159; BP diastolic 47–93; PULSE 65–84; RESP 10–18; TEMP 34.7–36.7; O2SAT 97–100; BMI 38.0
[2025-03-03] MEDS: acetaminophen 1,000 MG/100 ML PIGGYBACK 400 MG IV (06:37)
[2025-03-03 06:41] LABS: Hematocrit 43.2 % (36-47); Hemoglobin 14.00 g/dL (11.27-16.99); Mean Corpuscular HGB Conc 32.4 g/dL (30-55); Mean Corpuscular Hemoglobin 26.1 pg (27-33); Mean Corpuscular Volume 80.6 fl (85-98); Nucleated Red Blood Cells % 0 %; Platelet Count 249 10^3/cmm (157-399); Red Blood Count 5.36 10^6/uL (3.85-5.65); White Blood Count 8.64 10^3/uL (3.29-11.43)
[2025-03-03 07:00] LABS: Blood Urea Nitrogen 19 mg/dL (8-23); Calcium 9.7 mg/dL (8.5-10.5); Carbon Dioxide 22 mmol/L (22-29); Chloride 104 mmol/L (98-107); Glucose 99 mg/dL (65-115); Osmolality Calculated 290 mOsm/kg (285-295); Sodium 139 mmol/L (136-145)
--- NOTE | 2025-03-03 07:00 | W.PM.OPSUD ---
Surgery/Procedure H&P Update DATE OF PROCEDURE: March 03, 2025 DATE H&P PERFORMED: 02/04/25 H&P UPDATE INFORMATION: I have reviewed H&P completed within last 30 days, I have examined patient prior to procedure and No changes to prior documentation CHANGES TO PREVIOUS DOCUMENTATION: No change in health since last office visit patient is cleared the preoperative clearance process. Please refer to anesthesia's preoperative valuation for heart and lung findings. Once again patient understands Anzemet's procedure risk benefits complication alternative surgical nonsurgical treatment options. Understanding risk of surgery patient elects proceed with surgical intervention. All questions answered. PREOP DIAGNOSIS: Left knee DJD PRIMARY INDICATION FOR PROCEDURE: Left knee DJD PLANNED PROCEDURE: Operation Date: 03/03/25 07:00 Proposed Procedures p Gopi Robot Total Knee Arthroplasty(Left) - Raymond Paredes DO
[2025-03-03 07:01] LABS: Anion Gap 17.2 (5-19); Potassium 4.2 mmol/L (3.5-5.1)
--- NOTE | 2025-03-03 07:02 | ANES.PREANE2 ---
Pre-Anesthetic Assessment Height/Weight: Height 1.68 m Weight 107.048 kg Temp Resp BP Pulse Ox O2 Del Method 97.0 F L 18 159/93 99 Room Air 03/03/25 06:03 03/03/25 06:03 03/03/25 06:35 03/03/25 06:03 03/03/25 06:03 Preop Diagnosis: Left knee DJD Operation Date: 03/03/25 07:00 Proposed Procedures p Gopi Robot Total Knee Arthroplasty(Left) - Raymond Paredes DO Familial anesthetic complications: Resistant to anesthesia, nerve block wore off after 6 hrs last time, difficult spinal Was Beta Darren taken within 24 hours: N/A Was Clonidine taken within 24 hours: N/A Last intake: Intake Last Liquid Date 03/02/25 Last Liquid Time 20:00 Last Solid Date 03/02/25 Last Solid Time 17:30 Social No alcohol and No tobacco Exam alert, oriented x 3, clear to auscultation bilaterally and regular rate & rhythm Airway Mallampati: Class III Metabolic Morbid Obesity and Thyroid Disease Neuropsych Seizure Anesthetic Plan ASA status: 3 Anesthesia: Regional (specify below) Other: spinal + adductor Risk of > 500 ml blood loss (7ml/kg in children): No Other Pertinent Information patient agrees and voices understanding that stella a nerve block, she will not bear weight on the extremity for at least 24 hrs and will have transfer assistance when moving to toilet Medications/Allergies Home Medications ?Medication ?Instructions ?Recorded ?Confirmed ?Last Taken ?Type cyclobenzaprine 10 mg tablet 10 mg PO Q8H PRN muscle spasm #60 12/17/24 02/26/25 Unknown Rx tabs levetiracetam 750 mg tablet 750 mg PO TID #90 tabs 12/17/24 02/26/25 03/03/25 04:30 Rx (Keppra) levothyroxine 100 mcg tablet 100 mcg PO DAILY #90 tabs 12/17/24 02/26/25 02/26/25 Rx (Synthroid) tirzepatide (weight loss) 10 2.5 mg SUBCUT .weekly 01/20/25 02/26/25 02/28/25 History mg/0.5 mL subcutaneous solution Allergies Allergy/AdvReac Type Severity Reaction Status Date / Time No Known Allergies Allergy Verified 03/03/25 06:11 Current Medications Generic Name Dose Route Start Last Admin Trade Name Sara PRN Reason Stop Dose Admin Sodium Chloride 1,000 mls @ 30 mls/hr 03/03/25 06:00 03/03/25 06:38 Sodium Chloride 0.9% IV 03/04/25 05:59 30 mls/hr .Q24H IBAN Administration PFSH Anesthesia Medical History PTSD (post-traumatic stress disorder) Hypothyroidism Obesity Epilepsy SID (obstructive sleep apnea) Surgical History History of tonsillectomy History of cholecystectomy History of tubal ligation History of craniotomy calvarial hemangioma rupture Dr. Vizcaino 12/2011 S/P total knee arthroplasty right Social History Smoking and tobacco/nicotine status: never used tobacco/nicotine Substance/Drug Use: current Substance/Drug use frequency: other Other substance/drug use details: as needed for pain Household members: spouse Marital status: Current gender identity: Female Special felix needs: No Data Anesthesia 03/03/25 06:31 03/03/25 06:31 Short CBC 03/03/25 Range/Units 06:31 WBC 8.64 (3.29-11.43) 10^3/uL Hgb 14.00 (11.27-16.99) g/dL Hct 43.2 (36-47) % MCV 80.6 L (85-98) fl Plt Count 249 (157-399) 10^3/cmm Neut % (Auto) 74.5 % Neut # (Auto) 6.44 (1.8-7.7) 10^3/uL BMP 03/03/25 06:31 Sodium 139 Potassium 4.2 Chloride 104 Carbon Dioxide 22 BUN 19 Creatinine 1.1 H Glucose 99 Calcium 9.7 Blood Bank 03/03/25 06:31 Blood Type Cancelled Rho(D) Type Cancelled Antibody Screen Cancelled Anesthesia Procedures Nerve Block Nerve Block 1: Main Anesthesia: spinal anesthesia block Time Out Performed: Yes Consent: requested by attending/covering physician, from patient, from other, risks and benefits reviewed and patient agrees to proceed Nerve block location: adductor canal (L) Anesthesia monitors applied: pulse oximetry, EKG, BP cuff and oxygen Nerve block position: supine Anesthetic Used: ropivicaine 0.5% (20) Ultrasound used to: visualize and ID femerol nerve Nerve Stimulator Used?: No Interscalene/Femoral BLK: 4 stimuplex 21 g needle used for position and inplane approach and visualize local anesthetic spread Injection: neg aspiration of heme Patient Tolerated Procedure: well Complications: none Additional Comments: Diagnosis; post op pain
[2025-03-03] MEDS: ceFAZolin 2,000 MG in sodium chloride 0.9% (plus) 50 ML 100 MG IV (07:11)
[2025-03-03] MEDS: tranexamic acid 1,000 mg/10mL SDV 1000 MG IV (07:50)
[2025-03-03] MEDS: tranexamic acid 1,000 mg/10mL SDV 1000 MG XX (08:20)
[2025-03-03] MEDS: ROPivacaine 0.2% Premix 100 mL 200 MG INTRA-ARTI (08:20)
--- NOTE | 2025-03-03 09:14 | W.PM.BPON ---
Date of Procedure: 03/03/2025 Surgeon: Raymond Paredes DO Hogshead Mat Inspector(s): Naveen Paredes PA-C Procedure(s) performed: Left total knee arthroplasty?Gopi robotic assisted Findings of the procedure(s): Underwent procedure as planned without issues or complications taken recovery stable condition Estimated blood loss: 25 mL Specimen(s) removed: Tibia femur and patellar bone cuts removed Post-operative diagnosis: Left knee DJD
--- NOTE | 2025-03-03 09:15 | PM.OP ---
Operative Report Date of procedure: March 03, 2025 Surgeon: Raymond Paredes DO Paperboard Machine Operator: Naveen Paredes PA-C: PA was necessary for assistance in this case with leg positioning retraction and protection of neurovascular structures as well as assistance in implantation wound closure and dressing application. Procedure: Preoperative diagnosis: Left knee degenerative joint disease Post-op diagnosis: Same Procedure done: Left total knee arthroplasty, cemented?robotic assisted Gopi Implants: [place] triathlon size 5 femur CR cemented?left [place] triathlon size? 4 tibia universal baseplate cemented [place] triathlon symmetric patella size 31 mm Mariann triathlon polyethylene 10mm Surgeon: Raymond Paredes DO Estimated blood?loss: 25 mL Tourniquet 53 minutes IV fluids: 1300 mL Urine output: 100 mL Complications: None Condition: stable Disposition: floor Brief History: Patient is a 65-year-old female with with chronic?left knee degenerative joint disease.? Patient has been worked up in the outpatient setting in the orthopedic office at this point time through shared decision making given? [id number] arthritis as well as failed conservative treatment, and pt would?like to proceed with a?left total knee arthroplasty.? Through shared decision making elected to proceed with surgical intervention for?left total knee arthroplasty?Gopi robotic assisted.? We talked about continued conservative treatment and surgical intervention as far as the risk benefits complications alternatives surgical and nonsurgical treatment options.? At this point time understanding patient risks with surgery patient agrees to proceed with surgical intervention.? Once again risk with surgery include but are not?limited to make it better make it worse blood clot, heart attack, stroke, on the table, infection, injury to nerves or vessels, persistent pain, arthrofibrosis, implant failure.? Understanding these risks patient agrees to proceed with surgical intervention consent was obtained in the preop.? All questions answered. Procedure: Patient was seen and evaluated in the preoperative holding area.? Consent was reviewed and signed with patient with plan for?left total knee arthroplasty.? All questions answered.? Correct extremity marked.? Patient seen and evaluated by the anesthesia department and once cleared for surgery was taken back to the operative suite.? Patient was placed into a supine position on the OR table.? All bony prominences were well-padded.? Patient was appropriately secured to the bed.? Patient underwent anesthesia per the anesthesia department.? Patient received spinal anesthesia and? Bacon catheter was placed.? A nonsterile tourniquet was applied to the?left thigh.? At this point in time a final timeout performed.? Patient received appropriate preoperative antibiotics and TXA. Next the?left?lower extremity was then prepped and draped in standard orthopedic fashion. Esmarch tourniquet was used exsanguinate the?left?lower extremity.? Tourniquet was insufflated to 250 mmHg. A standard anterior incision was made over midline of the knee.? Sharp scalpel excision through skin and subcutaneous tissue full-thickness skin flaps were made.? Fascia was elevated off of the extensor retinaculum was stable with medial parapatellar arthrotomy was then made.? The performed standard sequential releases..? Immediately on entry into the joint patient was found to have severe eburnated bone and tricompartmental arthritic changes noted.? With significant osteophyte formation.? Next the the patella was then stuffed and the knee was then flexed.?? Terrie was placed superiorly around the anterior aspect of the femur this was freed of synovium and I subsequently then placed by 2 femur pins to establish my femur arrays for the Gopi robot.? These were then placed bicortically and? femur array was then appropriately secured with appropriate visualization.? Next attention was turned towards the tibial rays.? These were then drilled sequentially bicortically in parallel fashion and intraincisional.? I then placed my guide as well as my tibial array on in place.? This was appropriately secured and had excellent visualization with the Gopi robot.? Next the tibial checkpoint as well as femur checkpoint were then placed.? At this point time I then subsequently established my head center as well as my medial?lateral malleoli as well as my checkpoints.? Next utilizing standard Gopi technology I then mapped out the appropriate points and confirmation points around the femur as well as the tibia in standard fashion.? Once this was then done I then removed all osteophytes in preparation for dynamic testing.? All osteophytes were removed as well as I removed the ACL and the PCL was excised due to its significant tearing and degeneration noted.? At this point time the knee was brought into full extension and we performed our standard evaluation of our gap balancing stressing his?ligaments and extension as well as flexion appropriate adjustments were made to have appropriate gap balancing in both flexion and extension.? This plan for final Cuts, were able to correct patient's deformity to patient's ligamentous tolerances. we get a preoperative plan evaluating our implants which was a size 5 femur and a size 4 tibia.? Next we brought in the Gopi robot and sequentially made our femur cuts.? All excess bony cuts were then removed.? Finally we made our tibial cut.? Once this was done a standard PCL retractor was then placed into this position I excised the medial and?lateral meniscus.? The tibial cut was then subsequently removed all excess bony debris was removed.? I then utilized a?lamina apple solutions consultant and remove the posterior osteophytes.? At this point time sized the tibia and confirmed this was a size 4.? I utilized our blunt probe to establish rotation of tibial implant.? Once this was done I then placed my tibia size 4 trial in appropriate position and then subsequently placed tibial pins to hold this into place, and drilled up to a size 10 mm poly as well as a size 5 femur which was appropriately impacted in place knee was then subsequently brought into extension. Trials were then assessed,? this was stable with varus valgus stress in extension as well as had symmetrical translation when brought into flexion demonstrating symmetrical gaps. I had excellent balance gaps in flexion and extension with varus and valgus stresses.? At this point I was satisfied with these implants these were then verified and opened on the back table size 4 tibia, size 5 femur,? size 10 mm polythickness.? We did confirm appropriate gap balancing and stresses as well as alignment utilizing? Gopi and were satisfied with this plan.? ?At this point time with my trials in place I then towel clip the patella everted this made appropriate measurements subsequently utilizing freehand technique performed by patellar resurfacing this was confirmed to be appropriate resection and subsequently sized to be a 31 mm symmetric.? My drill peg guides were then clamped and appropriate position and appropriate position in the patella for appropriate tracking and parallel with the joint.? Pegs were drilled trial implant was placed and the knee was then subsequently ranged and found to have excellent patellar tracking.? Femur pegs were then drilled.? At this point time all of our trial implants were removed.? All checkpoints as well as guidepins and arrays were removed and appropriate counts made.? Satisfied with our tibial placement rotation I then utilized the keel punch and prepped the tibia.? The wound bed? was thoroughly irrigated and dried and prepped for cementation.? Cement was mixed on the back table.? Once cement was ready this was then covered onto the tibia and the tibial baseplate was then impacted and all excess cement was removed.? Next the polyethylene was then impacted into place on the tibial baseplate.? Next cement was placed onto the femur as well as under the femur implants and impacted in to place and all excess cement was extruded and removed.? Knee was taken into full extension? to clear all excess cement was removed.? Warm saline was placed over the joint.? I then towel clip patella and dried for cementation. cemented the patella into place.? This was all clamped and the cement was allowed to cure.? Thorough irrigation performed with pulse?lavage.? I then placed my periarticular injection while the cement was curing.? Once cured the knee was taken through range of motion and had excellent stability and gaps were balanced in flexion and extension.? Tourniquet was then deflated. hemostasis satisfactory with electrocautery.? Vancomycin powder was placed in wound bed for antibiotic infection prophylaxis. Next I then subsequently closed the capsule with Ethibond suture as well as a running strata fix suture.? Knee was then taken through range of motion 30 times.? Next the skin was then closed in?layered fashion of running stratifix sutures of deep and subcutenous tissue and skin.? ?closed in flexion and skin was closed with leandro. Incision was covered with [place] incisional VAC, with ABDs soft roll and Tal wrap.? Patient was then awakened from anesthesia and taken to PACU in stable condition. Disposition: Patient taken to PACU in stable condition will be admitted to the floor for pain control PT/OT weight-bear as tolerated?left?lower extremity dressing changes as needed, DVT prophylaxis. Pain control. Patient will receive appropriate postoperative antibiotics. patient will be seen today by the internal medicine team for medical management.? Patient will follow up with the office in 2 weeks.? Patient understands agrees with current plan.? All questions answered.
--- NOTE | 2025-03-03 09:38 | XR_ITS ---
WS: [id number] Exam: XR knee LT 1-2V 40206 Date/Time of Exam: 03/03/2025 9:48 AM Reason For Exam: l tka postop Comparison 02/13/2025. Total knee arthroplasty is in excellent position. Postop changes in the adjacent soft tissues. Anterior surgical skin clips. XR/XR knee LT 1-2V [id number] IMPRESSION: 1. Total knee replacement in excellent position.
--- NOTE | 2025-03-03 09:55 | ANE.PACU2 ---
Inpatient post-anesthesia follow up: Airway intact: Yes Vital signs: Temperature 94.5 F Pulse Rate 69 Respiratory Rate 18 Blood Pressure 112/47 Pulse Oximetry 99 Oxygen Delivery Me thod Room Air Oxygen Flow Rate Fraction of Inspir ed Oxygen Hydration adequate: Yes Nausea and vomiting: No Pain level: 1 Mental status: Baseline
--- NOTE | 2025-03-03 10:15 | PC.NURSE ---
Patient arrived to floor at 1000. Oral and axillary temperature reading 94.5 F. Temporal scan temperature reading 97.5 F. Jacy rich brought in to warm patient. Recheck at 1015 was 97.5 F orally.
--- NOTE | 2025-03-03 10:19 | PC.NURSE ---
1002 pt taken to OB 12 - accepted with Ivan, RN at sided BP 112/47 - pulse 67 - RR 20 - 99% room air - temp per OB thermometer - 94.5 - pt placed on Jacy hugger per OB team - no distress in pt noted - pt denies being cold - Per this nurse - reported to Dr Tuttle - per Dr Tuttle request - temporal scan completed on this pt per this nurse temp at 97.3
[2025-03-03] MEDS: chlorhexidine gluconate 0.12% Btl 473 mL 30 ML MUCOUS MEM (13:44)
[2025-03-03] MEDS: tranexamic acid 1,000 MG/100 ML PREMIX 600 MG IV (13:45)
--- NOTE | 2025-03-03 14:43 | P.CONIM_ITS ---
Providers/Reason For Consult 2 Consulting Physician/Specialty*: Dr. Jose Case, Leanne Gil, BENJAMIN Reason for Consult*: Medical clearance status post op left lower extremity. Requesting Physician: Dr. Raymond Paredes Attending Physician: Raymond Paredes DO Primary Care Provider: JULI Lind History of Present Illness History of Present Illness Souleymane Whitten is a 65 year old female with prior medical history of PTSD, right knee DJD, SID, epilepsy, grand mal (2013), no recent seizures - controlled on Keppra, morbid obesity, polyps, and hypothyroidism presenting to [facility] for planned Ortho surgery s/t DJD. Pre-op clinic appointment was 02/21/25. 03/03/25: CBC unremarkable, CMP mildly significant for creatinine 1.1, otherwise WNL. She is now status post left knee arthroplasty. Left knee x-ray; total knee replacement in excellent position. Left knee dressing in place; clean, dry, intact, no saturation. Normal postoperative swelling and tenderness to palpation to the left knee. Pain rated 1/10. Patient is able to move toes & plantarflex/dorsiflex ankle. Patient educated to seek medical attention if she has uncontrolled bleeding, uncontrolled pain, or any other new concerning symptoms. Patient is tolerating fluids and has conditional discharge pending after post-op urination. Review of Systems 2 Const: Denies: fever(s) ENMT: Denies: throat pain, ear or mastoid pain, nasal discharge, nasal congestion or sinus pain Card: Denies: chest pain Resp: Denies: dyspnea or wheezing GI: Denies: abdominal pain, nausea, vomiting or diarrhea Musc: Reports: extremity pain (1/10), joint swelling and joint stiffness Skin/Breast: Denies: rash Neuro: Denies: headache(s) Psych: Denies: difficulty concentrating Medications/Allergies Home Medications ?Medication ?Instructions ?Recorded ?Confirmed ?Last Taken ?Type cyclobenzaprine 10 mg tablet 10 mg PO Q8H PRN muscle s pasm #60 12/17/24 02/26/25 Unknown Rx tabs levetiracetam 750 mg tablet 750 mg PO TID #90 tabs 02/26/25 03/03/25 04:30 Rx (Keppra) levothyroxine 100 mcg tablet 100 mcg PO DAILY #90 tabs 12/17/24 02/26/25 02/26/25 Rx (Synthroid) tirzepatide (weight loss) 10 2.5 mg SUBCUT .weekly 02/26/25 02/28/25 History mg/0.5 mL subcutaneous solution apixaban 2.5 mg tablet (Eliquis) 2.5 mg PO BID 2 weeks #28 tabs 03/03/25 Unknown Rx cefadroxil 500 mg capsule 500 mg PO BID Postop total j oint 03/03/25 Unknown Rx prevention 7 days #14 caps hydrocodone 7.5 mg-acetaminophen 1 tab PO Q6H PRN pain postop 7 03/03/25 Unknown Rx 325 mg tablet days #28 tabs ondansetron 4 mg disintegrating 4 mg PO Q8H PRN nausea and 03/03/25 Unknown Rx tablet vomiting 3 days #9 tabs Allergies Allergy/AdvReac Type Severity Reaction Status Date / Time No Known Allergies Allergy Verified 03/03/25 06:11 Current Medications Generic Name Dose Route Start Last Admin Trade Name Freq PRN Reason Stop Dose Admin Chlorhexidine Gluconate 30 ml 03/03/25 11:00 03/03/25 13:44 Chlorhexidine Gluconate 0.12% Btl 473 Ml MUCOUS MEM 30 ml QID IBAN Administration Lactated Ringer's 1,000 mls @ 100 mls/hr 03/03/25 10:16 03/03/25 13:44 Lactated Ringers IV 100 mls/hr .Q10H IBAN Administration PFSH Acute 2 PFSH: Medical History PTSD (post-traumatic stress disorder) Hypothyroidism Obesity Epilepsy SID (obstructive sleep apnea) Surgical History History of tonsillectomy History of cholecystectomy History of tubal ligation History of craniotomy calvarial hemangioma rupture Dr. Vizcaino 12/2011 S/P total knee arthroplasty right Social History Smoking and tobacco/nicotine status: never used tobacco/nicotine Substance/Drug Use: current Substance/Drug use frequency: other Other substance/drug use details: as needed for pain Household members: spouse Marital status: Current gender identity: Female Special felix needs: No Vitals/I&O/Wt Last Vital Signs Temp 94.5 F L 03/03/25 10:00 Pulse 69 03/03/25 10:00 Resp 18 03/03/25 10:00 BP 112/47 03/03/25 10:00 Pulse Ox 99 03/03/25 10:00 O2 Del Method Room Air 03/03/25 10:03 03/02/25 03/03/25 03/03/25 22:59 06:59 14:59 Intake Total 1600 / 1600 Output Total 725 / 725 Balance 875 / 875 Weight last 48 hrs Weight 107.048 kg Weight 107.048 kg Physical Exam 2 Narrative: Left knee examination: Dressing in place, clean, dry, intact, no saturation. Normal postoperative swelling and tenderness to palpation to the left knee. Patient is able to move toes & plantarflex/dorsiflex ankle. Urinary Catheter Management: Bacon: Cath Placed During This Visit: yes, but has since been removed by the nurse Reason for Continuing Indwelling Catheter: Decision to DC Catheter Urinary Catheter Date of Insertion: 03/03/25 Urinary Catheter Time of Insertion: 07:21 Date Urinary Catheter Removed: 03/03/25 Time Urinary Catheter Discontinued: 13:53 Data 03/03/25 06:31 03/03/25 06:31 A&P Assessment and plan 1. S/P total knee arthroplasty: Reviewed vitals, CBC, BMP, knee x-ray, surgical note Pain management PT Eliquis for VTE prophylaxis Follow up with Orthopedics Patient educated to seek medical attention if she has uncontrolled bleeding, uncontrolled pain, or any other new concerning symptoms. 2. SID (obstructive sleep apnea): Continue home CPAP 3. Epilepsy: Controlled Continue home Keppra PDMP PDMP Reviewed: Not Reviewed Diagnoses S/P total knee arthroplasty Z96.659 SID (obstructive sleep apnea) G47.33 Epilepsy G40.909 Time Spent (min) 70
--- NOTE | 2025-03-03 14:45 | P.DS_ITS ---
Discharge Providers Date of Admission: 03/03/25 09:17 Date of Discharge: March 03, 2025 Attending Provider at Admission: Raymond Paredes DO Attending Provider at Discharge: Raymond Paredes DO Consults: Hospitalist Primary Care Provider: JULI Lind Diagnoses at Discharge Discharge Diagnosis 1. S/P total knee arthroplasty: 2. SID (obstructive sleep apnea): 3. Epilepsy: Reason for Visit Reason for Visit: M17.12 Brief History: Status post left total knee arthroplasty?Gopi robotic assisted Hospital Course Hospital Course Patient presented to the preoperative holding area with plan for left total knee arthroplasty after patient has been worked up in the outpatient setting for failed conservative treatment of [left] knee degenerative joint disease. Once cleared by anesthesia for surgery patient subsequently was taken back to the operative suite underwent anesthesia per anesthesia department and then subsequently underwent a [left] total knee arthroplasty. Procedure was performed without any complications patient was taken to PACU in stable condition patient recovered well in PACU and then was admitted to the floor postoperatively internal medicine was consulted and on board for medical management and assistance with care. Patient received appropriate PT/OT, postoperative antibiotics, postoperative TXA, pain control, postoperative DVT prophylaxis. Elevation and ice. Patient encouraged for knee range of motion allowed weightbearing as tolerated to the operative lower extremity. Dressing was changed as needed, patient progressed appropriately with therapy patient recovered well postoperatively and worked well and progressed well with therapy. Patient had had her previous session down and was comfortable likely discharge day of surgery as long as she progressed appropriately with therapy and pain control. We did have internal medicine evaluate patient. It was determined on postoperative day 0 the patient was stable for discharge from an orthopedic standpoint and medicine. Patient was comfortable with discharge and plan was discharged home. Patient received appropriate discharge instructions as well as pain medication and DVT prophylaxis postoperatively. Given appropriate instructions for dressing management. Patient will follow-up with Dr. Paredes/orthopedics in the office in 2 weeks. All questions answered. Understand if there is any issues questions or concerns and contact the office. Physical Exam Narrative: Left knee examination in PACU: Dressing on in place clean dry and intact compartment soft compressible, left lower extremity warm well-perfused spinal anesthesia still in effect Urinary Catheter Management: Bacon: Cath Placed During This Visit: yes, but has since been removed by the nurse Reason for Continuing Indwelling Catheter: Decision to DC Catheter Urinary Catheter Date of Insertion: 03/03/25 Urinary Catheter Time of Insertion: 07:21 Date Urinary Catheter Removed: 03/03/25 Time Urinary Catheter Discontinued: 13:53 Discharge Data Studies Completed and Pending Completed Studies During Hospitalization Category Date Time Status XR knee LT 1-2V 63172 Routine Exams 03/03/25 09:38 Completed Radiology Impressions Knee X-Ray 03/03/25 09:38 IMPRESSION: 1. Total knee replacement in excellent position. Laboratory Results WBC 8.64 10^3/uL (3.29-11.43) 03/03/25 06:31 RBC 5.36 10^6/uL (3.85-5.65) 03/03/25 06:31 Hgb 14.00 g/dL (11.27-16.99) 03/03/25 06:31 Hct 43.2 % (36-47) 03/03/25 06:31 MCV 80.6 fl (85-98) L 03/03/25 06:31 MCH 26.1 pg (27-33) L 03/03/25 06:31 MCHC 32.4 g/dL (30-55) 03/03/25 06:31 RDW 16.0 % (12.1-15.1) H 03/03/25 06:31 Plt Count 249 10^3/cmm (157-399) 03/03/25 06:31 MPV 11.9 fL (7.4-10.4) H 03/03/25 06:31 Neut % (Auto) 74.5 % 03/03/25 06:31 Lymph % (Auto) 16.8 % 03/03/25 06:31 [place] % (Auto) 6.3 % 03/03/25 06:31 Eos % (Auto) 1.4 % 03/03/25 06:31 Baso % (Auto) 0.7 % 03/03/25 06:31 Neut # (Auto) 6.44 10^3/uL (1.8-7.7) 03/03/25 06:31 Lymph # (Auto) 1.5 10^3/uL (0.8-4.8) 03/03/25 06:31 [place] # (Auto) 0.5 10^3/uL (0.2-0.9) 03/03/25 06:31 Eos # (Auto) 0.1 10^3/uL (0.0-0.8) 03/03/25 06:31 Baso # (Auto) 0.1 10^3/uL (0.0-0.1) 03/03/25 06:31 Nucleated RBC % (auto) 0 % 03/03/25 06:31 Nucleated RBCs # 0.0 /100WBC 03/03/25 06:31 Sodium 139 mmol/L (136-145) 03/03/25 06:31 Potassium 4.2 mmol/L (3.5-5.1) 03/03/25 06:31 Chloride 104 mmol/L (98-107) 03/03/25 06:31 Carbon Dioxide 22 mmol/L (22-29) 03/03/25 06:31 Anion Gap 17.2 (5-19) 03/03/25 06:31 BUN 19 mg/dL (8-23) 03/03/25 06:31 Creatinine 1.1 mg/dL (0.5-0.9) H 03/03/25 06:31 GFR Calculation 49.5 mL/min (90-130) L 03/03/25 06:31 Glucose 99 mg/dL (65-115) 03/03/25 06:31 Calculated Osmolality 290 mOsm/kg (285-295) 03/03/25 06:31 Calcium 9.7 mg/dL (8.5-10.5) 03/03/25 06:31 Blood Type O Positive 03/03/25 07:06 Rho(D) Type Rh positive 03/03/25 07:06 Antibody Screen Negative 03/03/25 07:06 Vitals Last Vital Signs Temp 98.1 F 03/03/25 14:50 Pulse 80 03/03/25 14:50 Resp 16 03/03/25 14:50 BP 117/79 03/03/25 14:50 Pulse Ox 97 03/03/25 14:50 O2 Del Method Room Air 03/03/25 10:03 Discharge Plan Discharge Patient Disposition: Home Condition: Stable Prescriptions: New Eliquis 2.5 mg tablet 2.5 mg PO BID 14 Days Qty: 28 0RF cefadroxil 500 mg capsule 500 mg PO BID 7 Days Qty: 14 0RF hydrocodone-acetaminophen 7.5-325 mg tablet 1 tab PO Q6H PRN (Reason: pain postop) 7 Days Qty: 28 0RF Continued levetiracetam [Keppra] 750 mg tablet 750 mg PO TID Qty: 90 5RF Rx Instructions: BID. TID if emergency cyclobenzaprine 10 mg tablet 10 mg PO Q8H PRN (Reason: muscle spasm) Qty: 60 0RF levothyroxine [Synthroid] 100 mcg tablet 100 mcg PO DAILY Qty: 90 1RF tirzepatide (weight loss) 10 mg/0.5 mL solution 2.5 mg SUBCUT .weekly Word Processing Machine Operator OK for DC: Orthopedics Discharge Order = DC NOW: Discharge Order (Routine); Ordered 03/03/25 Ordered By: Raymond Paredes Referrals: Raymond Paredes DO [Physician, Orthopedics] Discharge Diet: Regular Discharge Activity: Limit activity as instructed and Use walker/crutches as instructed Patient Instructions: Acute Wound Care (DC), Post Anesthesia Care Activity Restrictions/Additional Instructions: Kiah Dressing--Keep dressing on and dry. After 3 days you can remove some of the dressing and shower. disconnect battery pack when showering. Kiah dressing will stay on until follow up appt in 2 weeks. The battery pack for the dressing will at 5-7 days. Battery pack can be removed and discarded once batteries . Patient may weight-bear as tolerate to the operative extremity Utilize walker as needed Encourage knee range of motion Ice and elevate as needed for pain and swelling Take pain medication as prescribed Take antinausea medication as needed Pain medication can cause constipation. take [id number] stool softeners and or MiraLAX. Take prescribed Eliquis twice daily for the next 14 days for blood clot prevention May supplement for pain with Tylenol [id number] as needed(1000 mg every 8 hours-do not exceed more than 3000mg in 24-hour period) No baths or soaks Follow-up in the orthopedic office in 2 weeks Contact the office for any questions or concerns Discharge Attestations Time Spent in Discharge Care*: less than 30 min Quality Metrics Clinical Quality Measures [ No reported AMI, CVA or VTE this stay] Coding Level of Care Code Acute Code for Chg Fwd Diagnoses S/P total knee arthroplasty Z96.659 SID (obstructive sleep apnea) G47.33 Epilepsy G40.909
--- NOTE | 2025-03-03 15:15 | PC.OT ---
OT EVALUATION ATTEMPTED; PATIENT SEATED IN W/C IN WAITING AREA WAITING FOR TO PICK HER UP FOR D/C. REPORTS NO NEED FOR SKILLED OT SERVICES SHE HAD HER OTHER KNEE REPLACED IN [facility]IL.
== END 2025-03-03 15:46 | disposition home or self-care (01) ==
LOC: OBGYN 09:18
PROVIDERS: Physician Assistant; Admitting Provider Student in an Organized Health Care Education/Training Program; PCP Nurse Practitioner Family; Visit Provider Student in an Organized Health Care Education/Training Program
PROC: 8E0Y0CZ Robotic Assisted Procedure of Lower Extremity, Open Approach (ICD-10-PCS; CPT 27447; principal; 2025-03-03 07:00)
DX: M17.12 Unilateral primary osteoarthritis, left knee (principal); E66.01 Morbid (severe) obesity due to excess calories; Z68.38 Body mass index [BMI] 38.0-38.9, adult; E03.9 Hypothyroidism, unspecified; G47.33 Obstructive sleep apnea (adult) (pediatric); G40.909 Epilepsy, unspecified, not intractable, without status epilepticus; F43.10 Post-traumatic stress disorder, unspecified
CPT/HCPCS: 27447; 20985; 36415; 51702; 73560; 80048; 85025; 86850; 86900; 97110; 97116; 97161; A4216; C1713; C1776; G0378; J0131; J0169; J0690; J1100; J1885; J2250; J2371; J2704; J2795; J3373; J7030; J7120; J9999; L8699

== ENCOUNTER → 2025-03-18 13:59 | Outpatient (BNVA) | payer OTHER, SELFPAY | PROVIDERS: PCP Nurse Practitioner Family; Visit Provider Physician Assistant | DX: Z98.890 Other specified postprocedural states (principal); Z96.659 Presence of unspecified artificial knee joint | CPT/HCPCS: 73560; 73565 ==